=== PATIENT | female | born 1995 | race African-American/Black ===

== ENCOUNTER 2023-10-26 07:26 | Emergency (ER) | payer OTHER, SELFPAY ==
--- NOTE | ~2023-10-26 | CT_ITS ---
EXAMINATION: CT abdomen pelvis wo con DATE: 10/26/2023 10:06 INDICATION: Upper and lower abdominal pain TECHNIQUE: Computed tomography (CT) of the abdomen and pelvis was performed without intravenous contr ast. (Patient refused intravenous contrast material.) Automated exposure control and iterative recons truction technique were employed. Exam dose: 863.35 mGy-cm total exam DLP. COMPARISON: None. FINDINGS: The lung bases are clear. Normal heart size. No pericardial or pleural effusion. The liver, gallbladder, bile ducts, pancreas, pancreatic duct, spleen, and adrenal glands and kidneys appear unremarkable on this limited noncontrast examination. Normal caliber of the abdominal aorta. Shotty nonenlarged lymph nodes are noted in the right lower qu adrant, which may represent mesenteric adenitis. The uterus, adnexal areas and urinary bladder are all unremarkable. Normal appendix. No bowel obstruction, bowel wall thickening, pneumatosis or intraperitoneal free air . Small fat-containing umbilical hernia. Included skeletal structures are unremarkable. IMPRESSION: Normal appendix [place] nonenlarged right lower quadrant mesenteric lymph nodes, may be due to mesenteric adenitis Reviewed, dictated and finalized at [facility]. Reviewed, dictated and finalized at [facility]. IMPRESSION: Normal appendix [place] nonenlarged right lower quadrant mesenteric lymph nodes, may be due to m esenteric adenitis
[2023-10-26 07:33] VITALS: BP 157/121; PULSE 76; RESP 19; TEMP 36.9; O2SAT 98
[2023-10-26 07:59] LABS: Basophils Absolute Auto 0.1 K/mm3 (0.0-0.1); Basophils Percent Auto 0.8 % (0.2-1.2); Eosinophils Percent Auto 0.5 % (0-4.4); Hemoglobin 12.8 g/dL (12.0-15.0); Immature Granulocyte Absolute 0.01 K/mm3 (0.00-0.031); Immature Granulocyte Percent A 0.2 % (0-0.5); Lymphocytes Percent Auto 33.8 % (18.3-44.2); Mean Corpuscular HGB Conc 32.8 g/dl (32-36); Mean Corpuscular Hemoglobin 28.8 pg (26-34); Mean Corpuscular Volume 87.8 fl (80-100); Mean Platelet Volume 10.6 fl (7.4-10.4); Monocytes Absolute Auto 0.5 K/mm3 (0.1-0.6); Monocytes Percent Auto 7.5 % (2.6-8.5); Neutrophils Absolute Auto 3.7 K/mm3 (1.3-6.7); Neutrophils Percent Auto 57.2 % (45.5-73.1); Platelet Count Result 423 k/mm3 (150-375); Red Blood Count 4.44 M/mm3 (4.2-5.4); Red Cell Distribution Width 12.6 % (11.5-14.5); White Blood Count 6.5 K/mm3 (4.5-10.0)
--- NOTE | 2023-10-26 08:07 | ED.ABDPAIN ---
HPI - Abdominal Pain General Chief Complaint: Abdominal Pain Stated Complaint: ABD pain Time Seen by Provider: 10/26/23 07:29 History of Present Illness HPI narrative: 28-year-old female presenting to the emergency department for evaluation of abdominal pain with associated nausea and vomiting. Patient states that the symptoms started again this morning. Patient reports she had a previous episode pain approximately 1 month ago that resolved on its own. Related Data Allergies Allergy/AdvReac Type Severity Reaction Status Date / Time No Known Allergies Allergy Verified 10/26/23 07:41 Review of Systems Review of Systems: All systems reviewed & are unremarkable except as noted in HPI and below Exam Narrative: APPEARANCE: Well appearing, no pain, no distress, well-nourished. HEAD: normocephalic, atraumatic. EYES: PERRLA/EOMI, conjunctivae clear. NOSE: Normal no drainage EARS:TMS clear with good light reflex. THROAT: Pharynx clear, no exudate. NECK: Supple. No adenopathy, no masses. RESPIRATORY: Airway patent, respirations nonlabored. Clear to auscultation bilaterally, no rales, rhonchi, wheezing. CARDIOVASCULAR: Regular rate and rhythm without murmurs rubs or gallops. ABDOMINAL: Soft, diffuse tenderness, nondistended, normal bowel sounds MUSCULOSKELETAL: Moves all extremities. Strength/ROM intact, No edema, No calf tenderness. NEURO: Alert. Cranial nerves II through XII intact. Grossly intact SKIN: Warm, dry. Normal Color Course Course Emergency Course: 28-year-old female presented emergency department for evaluation diffuse abdominal pain. Patient is afebrile with no leukocytosis and a stable hemoglobin of 12.8. Normal INR, patient had no acute abnormalities on her CMP UA does show some evidence of infection but patient is nitrate negative. Urine culture was ordered. CT abdomen pelvis showed possible mesenteric adenitis. On re-examination patient is well appearing. Patient was advised to take Tylenol and ibuprofen for pain control. All questions concerns were addressed patient was well-appearing at time of discharge. Vital Signs Vital signs: Vital Signs Temperature 98.5 F 10/26/23 07:33 Pulse Rate 76 10/26/23 07:33 Respiratory Rate 19 10/26/23 07:33 Blood Pressure 157/121 H 10/26/23 07:33 Pulse Oximetry 98 10/26/23 07:33 Oxygen Delivery Room Air 10/26/23 07:33 Temperature 98.5 F 10/26/23 07:33 Pulse Rate 69 10/26/23 11:08 Respiratory Rate 16 10/26/23 11:08 Blood Pressure 102/55 L 10/26/23 11:08 Pulse Oximetry 100 10/26/23 11:08 Oxygen Delivery Room Air 10/26/23 07:33 MDM - Abdominal Pain Differential Diagnosis Differential diagnosis: Likely abdominal pain, acute appendicitis, calculus of kidney, constipation, diverticulitis, gastroenteritis, pancreatitis and small bowel obstruction Lab Data Attestation: I reviewed the patient's lab results. 10/26/23 07:46 10/26/23 07:46 Labs: Lab Results 10/26/23 10/26/23 Range/Units 07:46 09:12 WBC 6.5 (4.5-10.0) K/mm3 RBC 4.44 (4.2-5.4) M/mm3 Hgb 12.8 (12.0-15.0) g/dL Hct 39.0 (37.0-47.0) % MCV 87.8 (80-100) fl MCH 28.8 (26-34) pg MCHC 32.8 (32-36) g/dl RDW 12.6 (11.5-14.5) % Plt Count 423 H (150-375) k/mm3 MPV 10.6 H (7.4-10.4) fl Immature Gran % (Auto) 0.2 (0-0.5) % Neut % (Auto) 57.2 (45.5-73.1) % Lymph % (Auto) 33.8 (18.3-44.2) % [place] % (Auto) 7.5 (2.6-8.5) % Eos % (Auto) 0.5 (0-4.4) % Baso % (Auto) 0.8 (0.2-1.2) % Lymph # (Auto) 2.20 (0.9-3.2) K/mm3 [place] # (Auto) 0.5 (0.1-0.6) K/mm3 Eos # (Auto) 0.0 (0-0.3) K/mm3 Baso # (Auto) 0.1 (0.0-0.1) K/mm3 Abs Immat Gran (auto) 0.01 (0.00-0.031) K/mm3 Absolute Neuts (auto) 3.7 (1.3-6.7) K/mm3 Absolute Nucleated RBC 0.000 (0.0-0.012) K/mm3 Nucleated RBC % 0.0 (0.0-0.2) % PT 13.3 (11.1-14.7) Seconds INR 1.0 APTT 34.1 (22.3-36.8) Sec
[2023-10-26 08:10] LABS: Alanine Aminotransferase 17 U/L (6-35); Alkaline Phosphatase 51 U/L (38-126); Anion Gap 12 mmol/L (4-12); Aspartate Amino Transferase 26 U/L (14-36); Bilirubin,Total 0.5 mg/dL (0.2-1.3); Blood Urea Nitrogen 12 mg/dL (7-17); Carbon Dioxide 20 mmol/L (22-30); Chloride 106 mmol/L (98-107); Estimated CRCL calculation 109 ml/min; Estimated Glomerular Filt Rate > 60; Glucose 104 mg/dL (65-110); Lactic Acid Reflex 1.1 mmol/L (0.7-2.0); Lipase 62 U/L (23-300); Potassium 4.1 mmol/L (3.4-5.0); Sodium 138 mmol/L (137-145)
[2023-10-26] MEDS: BELLADONNA ALK/PHENOB ELIX 10 ML, MAG HYDROX/ALUMINUM HYD/SIMETH 30 ML, LIDOCAINE HCL 2... PO (08:18)
[2023-10-26] MEDS: PANTOPRAZOLE SODIUM IV 40 MG VIAL IV PUSH (08:18)
[2023-10-26] MEDS: HALOPERIDOL LACTATE 5 MG/ML VIAL IM (08:18)
[2023-10-26 08:22] LABS: Prothrombin Time 13.3 Seconds (11.1-14.7)
[2023-10-26 08:24] LABS: Partial Thromboplastin Time 34.1 Seconds (22.3-36.8)
--- NOTE | 2023-10-26 08:24 | PC.NURSE ---
pt reports she is unable to provide a urine sample at this time. pt is declining straight cath.
[2023-10-26 09:27] LABS: Appearance Urine Cloudy (Clear); Bacteria Urine None Seen /hpf; Bilirubin Urine Negative (Negative); Blood Urine Negative (Negative); Color Urine Dark Yellow (Yellow); Glucose Urine UA Negative (Negative); Ketones Urine Trace mg/dL (Negative); Leukocyte Esterase Ur 1+ LEU/UL (Negative); Nitrate Urine Negative (Negative); Protein Urine 1+ mg/dL (Negative); Squamous Epithelial Cell Urine None Seen /hpf (Few); pH Urine 5.5 (5.0-9.0)
--- NOTE | 2023-10-26 09:27 | PC.NURSE ---
pt requesting for IV to be taken out. pt reports the IV is too far in and is burning. IV site is patent, no redness or swelling noted, flushed without difficulty. explained to pt that we may have to put another one in if doctor orders more test or medications. pt asked to pull IV out a little. attempted to pull IV catheter out a small amount and pt demanding for IV to be removed. IV removed w/ catheter intact.
[2023-10-26 09:28] LABS: Add Urine Microscopic? YES; Specific Grav Ur 1.036 (1.001-1.035)
[2023-10-26 11:08] VITALS: BP 102/55; PULSE 69; RESP 16; O2SAT 100
== END 2023-10-26 11:09 | disposition home or self-care (01) ==
PROVIDERS: Emergency Provider Emergency Medicine
DX: I88.0 Nonspecific mesenteric lymphadenitis (principal)
CPT/HCPCS: 36415; 74176; 80053; 81001; 81025; 83605; 83690; 85025; 85610; 85730; 87086; 87088; 96372; 96374; 99284; A9270; C9113; J1630